=== PATIENT | female | born 1960 | race Caucasian/White ===

== ENCOUNTER 2020-10-25 16:24 | Outpatient (CLI) | payer BC, SELFPAY ==
--- NOTE | ~2020-10-25 | MM_ITS ---
EXAMINATION: MM screening reid BI w justin HISTORY: Screening TECHNIQUE: Craniocaudal and mediolateral oblique 3-D tomosynthesis images were obtained and synthetic 2-D images were generated. CAD analysis was submitted and interpreted. COMPARISON: Comparison to multiple prior studies sequentially, with oldest reviewed study dated 01/2014. BREAST PARENCHYMAL COMPOSITION: There are scattered areas of fibroglandular density. FINDINGS: There is no evidence of suspicious mass, calcification, or architectural distortion to sugg est malignancy in either breast. There has been no suspicious interval change. IMPRESSION: 1. No mammographic evidence of malignancy. 2. Recommend routine screening mammography in one year. BI-RADS Category 1: Negative Reviewed, dictated and finalized at location A. ITE TREATER
== END 2020-10-25 16:25 | disposition home or self-care (01) ==
PROVIDERS: PCP Family Medicine Adolescent Medicine; Visit Provider Obstetrics & Gynecology
DX: Z12.31 Encounter for screening mammogram for malignant neoplasm of breast (principal)
CPT/HCPCS: 77063; 77067

== ENCOUNTER 2022-08-28 07:38 | Observation (INO) | payer BC, SELFPAY ==
--- NOTE | ~2022-08-28 | XR_ITS ---
EXAMINATION: XR wrist LT min 3V DATE: 08/28/2022 08:12 INDICATION: Left wrist injury and pain. TECHNIQUE: 4 views of left wrist were obtained. COMPARISON: None. FINDINGS: There is a comminuted fracture of distal radius with involvement of the distal articular beasley rface. The main distal fracture fragment demonstrates impaction and dorsal angulation. There is 15 de grees dorsal tilt of the distal articular surface. There is an avulsion fracture of the ulnar styloid . There is mild osteoarthritis of first carpometacarpal joint and triscaphe joint. IMPRESSION: 1. Comminuted fracture of distal radius. 2. Avulsion fracture of the ulnar styloid. Reviewed, dictated and finalized at location A. ER PRINTER
--- NOTE | ~2022-08-28 | XR_ITS ---
EXAMINATION: XR ankle LT min 3V DATE: 08/28/2022 08:11 INDICATION: Left ankle pain and swelling. Fall. TECHNIQUE: 4 views of left ankle were obtained. COMPARISON: None. FINDINGS: There is a transverse fracture of lateral malleolus with medial aspect of the fracture line 13 mm distal to the level of the tibial plafond. The distal fracture fragment demonstrates near-hannah omic alignment. There is mild midfoot osteoarthritis. There is an enthesophyte at plantar aspect of c alcaneal tuberosity. Ankle soft tissue swelling is noted. IMPRESSION: 1. Transverse fracture of lateral malleolus. Reviewed, dictated and finalized at location A. ING SPECIALIST
--- NOTE | ~2022-08-28 | XR_ITS ---
EXAMINATION: XR chest 1V portable 08/28/2022 17:28 INDICATION: Hypertension. Type 2 diabetes. PROCEDURE: AP portable chest COMPARISON: No prior studies for comparison. FINDINGS: The lungs are clear. The cardiomediastinal silhouette is within normal limits. There are no pleural effusions. There is no pneumothorax suspected. IMPRESSION: 1: NO ACUTE CARDIOPULMONARY DISEASE. Reviewed, dictated and finalized at location A. L SPINNER
[2022-08-28 07:39] VITALS: BP 188/86; PULSE 85; RESP 16; TEMP 36.6; O2SAT 96
--- NOTE | 2022-08-28 08:20 | ED.FALL ---
HPI - Fall General Chief Complaint: Fall Stated Complaint: miss step on steps; ankle and wrist pain Time Seen by Provider: 08/28/22 07:56 Source: patient, family and EMS Mode of arrival: EMS Limitations: no limitations History of Present Illness HPI Narrative: Patient going down 1 step, twisted left ankle, heard a pop, landed forward on the left wrist. She denies any other injuries, loss of consciousness or head injury. History of diabetes, hypertension, hyperlipidemia. Currently on baby aspirin once a day. Patient does not smoke or drink or uses drugs. Related Data Home Medications Medication Instructions Recorded Confirmed aspirin 81 mg tablet,delayed 81 mg PO DAILY 01/07/22 05/20/22 release multivit with 1 tablet PO DAILY 01/07/22 05/20/22 wrazoyjn-bnwq-QF-lutein 8 mg iron-400 mcg-300 mcg tablet (Multivitamin Women 50 Plus) losartan 100 mg tablet mg 08/28/22 metformin 500 mg tablet,extended mg PO 08/28/22 release 24 hr metoprolol succinate 50 mg mg PO 08/28/22 tablet,extended release 24 hr sertraline 100 mg tablet mg 08/28/22 sitagliptin phosphate 100 mg mg 08/28/22 tablet (Januvia) Allergies Allergy/AdvReac Type Severity Reaction Status Date / Time No Known Allergies Allergy Verified 08/28/22 07:53 Review of Systems Review of Systems: All systems reviewed & are unremarkable except as noted in HPI and below PMFSH Past Medical History Medical History Abnormal Pap smear of cervix 08/09/08 BENIGN APPEARING GLANDULAR CELL STATUS POST HYST Anxiety Diabetes type 2, controlled Hypertension Osteopenia (~2014) Pure hypercholesterolemia, unspecified Screening mammogram, encounter for Surgical History Surgical History History of colposcopy with cervical biopsy (11/03/03) History of hysterectomy, supracervical (~2000) History of tubal ligation (~1981) Family History Family History Mother Carcinoma of colon Cerebrovascular accident Colon polyp Hypertension Heart disease Grandparent Acute myocardial infarction Breast cancer Diabetes mellitus Heart disease Sibling Carcinoma of colon Colon polyp Grandparent Diabetes mellitus Father Malignant neoplasm of lung Social History Social History Smoking status: Never smoker Second hand tobacco smoke exposure: Yes Alcohol intake: never Substance use: never Substance use type: does not use Additional living arrangements comments: 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 Gender identity (if verbalized by the patient): Female Sexual Orientation (if Verbalized by the Patient): Straight or Heterosexual Spiritual care concerns: No Agree to blood products: Yes Exam Narrative: General appearance: Well-developed, well-nourished Skin: Normal color Head: Normocephalic, nontraumatic Eyes: Clear conjunctiva ENT: Oropharynx normal, ears normal, nose normal Neck: Supple, nontender Chest and respiratory: Airway patent, no respiratory distress, no accessory muscle use Heart: Regular rate/rhythm Abdomen: Soft, nontender, no organomegaly, quiet bowel sounds Vascular: Normal peripheral pulses, normal capillary refill. Musculoskeletal: Diffuse tenderness, slight swelling of the left wrist with severe limited range of motion, left ankle showed swelling and diffuse tenderness at the lateral malleolus. Neurologic: Alert and oriented ?3, [facility] SPECIALIST is normal as tested, no gross motor deficit Course Reevaluation(s) Re
[2022-08-28] MEDS: MORPHINE SULFATE (*CRX) 4 MG/ML INJ IV PUSH ×2 (09:06→14:54)
[2022-08-28] MEDS: ONDANSETRON INJ 4 MG/2 ML VIAL IV PUSH ×2 (09:06→14:54)
[2022-08-28 14:53] VITALS: BP 155/73; PULSE 77; RESP 20; O2SAT 96
--- NOTE | 2022-08-28 15:04 | PC.NURSE ---
Patient attempted to ambulate with crutch and is able to scoot her foot. but unable to bare weight on that foot.
--- NOTE | 2022-08-28 17:20 | PM.IMHP ---
H&P: HPI History of Present Illness Date/Time: 08/28/22 17:20 Chief Complaint: Left ankle and wrist pain after fall. Narrative: This is a very pleasant 62-year-old female with hypertension, hyperlipidemia, and diabetes who presented to the ED for evaluation of left ankle and wrist pain after a fall. This morning while walking down a couple of steps her left ankle rolled inwards and caused her to fall onto the ground at which time she tried to stop herself with the left wrist. She heard an immediate ?pop? in the the left ankle and she had pain in both her wrist and ankle after the fall. She had difficult times getting herself up and EMS was summoned. In the emergency department she was found to have a transverse fracture of the lateral malleolus and a comminuted fracture of the distal radius with an avulsion fracture of the ulnar styloid. She was splinted and plans were for discharge home however she is having difficulties ambulating and with concerns for safety she is being admitted. She received pain medication not long prior to my examination and she is comfortable at this time. She denies head trauma and loss of consciousness in the fall. Review of Systems Review of Systems: Twelve systems were reviewed. No recent cold or flu symptoms. She does have a chronic, mild cough which she has been told is related to her blood pressure medications. She reports that her diabetes is well controlled though admits she has not been checking her glucose much since the holiday. No blurry vision, polydipsia, or polyuria. No history of venous thromboembolism. Except as documented, all other systems were reviewed and are negative. [facility] Past Medical History Medical History (Updated 08/28/22 @ 21:58 by Aretha Tolliver PA-C) Anxiety Diabetes type 2, controlled Hypertension Osteopenia (~2014) Pure hypercholesterolemia, unspecified Surgical History Surgical History (Updated 08/28/22 @ 21:52 by Aretha Tolliver PA-C) History of bilateral salpingo-oophorectomy History of colposcopy with cervical biopsy (11/03/03) History of hysterectomy, supracervical (~2000) History of tubal ligation (~1981) Family History Family History Mother Carcinoma of colon Cerebrovascular accident Colon polyp Hypertension Heart disease Grandparent Acute myocardial infarction Breast cancer Diabetes mellitus Heart disease Sibling Carcinoma of colon Colon polyp Grandparent Diabetes mellitus Father Malignant neoplasm of lung Social History Social History (Updated 08/28/22 @ 21:52 by Aretha Tolliver PA-C) Social History: Surrogate medical decision maker: Conner Subramanian, spouse. Code status: Full code. Smoking status: Never smoker Second hand tobacco smoke exposure: No Alcohol intake: never Substance use: never Substance use type: does not use Lack of Transportation: No Lack of Food: Never True Current Housing: I Have Housing Concerned About Future Housing: No Difficulty Paying Gas/Electric Bills: No Difficulty Paying for Meds: No Currently Unemployed: No Education: High School Diploma/GED Difficulty w/ Childcare or Family Care: No Additional living arrangements comments: Lives with in [place]. 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 Spiritual care concerns: No Agree to blood products: Yes Meds Home Medications and Allergies Home Medications Medication Instructions Recorded Confirmed Type aspirin 81 mg tablet,delayed 81 mg PO DAILY 01/07/22 08/28/22 History release multivit with 1 tablet PO DAILY 01/07/22 08/28/22 History abzpicgj-zrjn-EI-lutein 8 mg iron-400 mcg-300 mcg tablet (Multivitamin Women 50 Plus) losartan 100 mg tablet 100 mg PO DAILY #90 tabs 01/25/22 08/28/22 Rx sertraline 100 mg tablet 100 mg PO DAILY #90 tabs 01/25/22 08/28/22 Rx sitagliptin phosphate 100 mg 100 mg PO DAILY #90
--- NOTE | 2022-08-28 18:17 | ADMGEN ---
This patient, Betina Denney, was admitted to 2 Medical Room 242-01. Patient/family oriented to hospital policies and general routines including ID bracelet, bed and alarms, visiting hours, pain management, procedures, bathroom and other care routines, personal items, smoking policy, room service/diet, and visiting hours. Information on how to activate the Rapid Response Team has been discussed. Patient/Family are encouraged to report perceived risks to care and to ask questions if they do not understand what they are told or what they should do.
[2022-08-28 18:34] VITALS: BMI 41.1
[2022-08-28 19:03] LABS: Basophils Percent Auto 0.3 % (0.2-1.2); Eosinophils Absolute Auto 0.1 K/mm3 (0-0.3); Eosinophils Percent Auto 1.4 % (0-4.4); Hematocrit 42.3 % (37.0-47.0); Hemoglobin 13.3 g/dL (12.0-15.0); Immature Granulocyte Absolute 0.04 K/mm3 (0.00-0.031); Immature Granulocyte Percent A 0.4 % (0-0.5); Lymphocytes Absolute Auto 2.99 K/mm3 (0.9-3.2); Lymphocytes Percent Auto 31.3 % (18.3-44.2); Mean Corpuscular HGB Conc 31.4 g/dl (32-36); Mean Corpuscular Hemoglobin 26.9 pg (26-34); Mean Corpuscular Volume 85.6 fl (80-100); Mean Platelet Volume 10.3 fl (7.4-10.4); Monocytes Absolute Auto 0.6 K/mm3 (0.1-0.6); Neutrophils Absolute Auto 5.8 K/mm3 (1.3-6.7); Neutrophils Percent Auto 60.6 % (45.5-73.1); Platelet Count Result 132 k/mm3 (150-375); Red Blood Count 4.94 M/mm3 (4.2-5.4); Red Cell Distribution Width 15.6 % (11.5-14.5); White Blood Count 9.5 K/mm3 (4.5-10.0)
[2022-08-28 19:14] LABS: Alanine Aminotransferase 47 U/L (6-35); Albumin Level 4.5 g/dL (3.5-5.1); Alkaline Phosphatase 71 U/L (38-126); Anion Gap 7 mmol/L (8-16); Aspartate Amino Transferase 56 U/L (14-36); Blood Urea Nitrogen 15 mg/dL (7-17); Calcium 8.9 mg/dL (8.4-10.2); Carbon Dioxide 25 mmol/L (22-30); Chloride 106 mmol/L (98-107); Estimated CRCL calculation 101 ml/min; Estimated Glomerular Filt Rate > 60; Glucose 142 mg/dL (65-110); Sodium 138 mmol/L (137-145)
[2022-08-28 19:20] LABS: Hemoglobin A1C 7.6 % (<5.7)
[2022-08-28 19:21] LABS: INR 1.2; Prothrombin Time 14.7 Seconds (11.1-14.7)
[2022-08-28 19:22] LABS: Partial Thromboplastin Time 29.7 SECONDS (22.3-36.8)
[2022-08-28 19:52] LABS: Glucose Point of Care 159 mg/dl (65-105)
[2022-08-28] MEDS: HYDROcodone/acetaminophen (*CRX) 5-325 MG TABLET 1 TAB PO (20:52)
[2022-08-28 21:23] VITALS: BP 125/55; PULSE 86; RESP 18; TEMP 36.8; O2SAT 92
[2022-08-29] MEDS: ACETAMINOPHEN 325 MG TABLET 650 MG PO ×2 (04:30→20:19)
[2022-08-29 04:40] LABS: Glucose Point of Care 167 mg/dl (65-105)
[2022-08-29 05:30] VITALS: BP 141/66; PULSE 81; RESP 18; TEMP 36.4; O2SAT 94
--- NOTE | 2022-08-29 07:11 | PCOTNOTE ---
Needs ortho consult and WB status prior to OT evaluation.
--- NOTE | 2022-08-29 07:37 | PCPTNOTE ---
Needs ortho consult and WB status prior to PT evaluation.
[2022-08-29 08:00] VITALS: BP 146/63; PULSE 82; RESP 18; TEMP 36.6; O2SAT 96
[2022-08-29 09:13] LABS: Glucose Point of Care 198 mg/dl (65-105)
[2022-08-29] MEDS: ONDANSETRON INJ 4 MG/2 ML VIAL IV PUSH ×2 (09:13→15:10)
[2022-08-29] MEDS: metFORMIN HCL XR 500 MG TAB.SR.24H 1000 MG PO ×2 (10:17→17:15)
[2022-08-29] MEDS: THERAPEUTIC MULTIVITAMINS/MINERALS TAB (*BKC) 1 TABLET PO (10:17)
[2022-08-29] MEDS: SERTRALINE HCL 50 MG TABLET 100 MG PO (10:18)
[2022-08-29] MEDS: LOSARTAN POTASSIUM 100 MG TABLET PO (10:19)
[2022-08-29] MEDS: METOPROLOL SUCCINATE EXT REL 50 MG TABCR PO (10:19)
[2022-08-29 11:45] LABS: Glucose Point of Care 214 mg/dl (65-105)
[2022-08-29] MEDS: INSULIN ASPART (*BKC) 100 UNITS/ML SUB-Q (12:53)
--- NOTE | 2022-08-29 13:31 | PM.CNOR ---
Assessment and Plan Assessment and plan (1) Closed fracture of left distal radius: Qualifiers: Encounter type: initial encounter Fracture morphology: Colles' Qualified Code(s): S52.532A - Colles' fracture of left radius, initial encounter for closed fracture Code(s): S52.502A - Unspecified fracture of the lower end of left radius, initial encounter for closed fracture Status: Acute Assessment and Plan: New patient evaluation status post injury Left wrist and ankle. The history, physical exam and radiographs reviewed with the patient. Type of fracture discussed in detail. Left comminuted distal radius fracture with intra-articular extension. Treatment options including operative and non operative treatment reviewed. Risks, benefits and alternatives of each treatment discussed in detail. The patient has declined surgical treatment. Risks of treatment decision discussed in detail. Potential problems with displacement of the fracture, loss of alignment, nonunion, malunion and dysfunction discussed in detail. The patient's questions were answered. They verbalized understanding and agreement. Conservative treatment with immobilization, ice, compression and elevation. Currently in splint. Plan repeat radiographs in 1 week. (2) Closed fracture of lateral malleolus of left ankle: Qualifiers: Encounter type: initial encounter Fracture alignment: displaced Qualified Code(s): S82.62XA - Displaced fracture of lateral malleolus of left fibula, initial encounter for closed fracture Code(s): S82.62XA - Displaced fracture of lateral malleolus of left fibula, initial encounter for closed fracture Status: Acute Assessment and Plan: Type of fracture discussed in detail. Minimally displaced distal fibular fracture. Treatment options including operative and non operative treatment reviewed. Risks, benefits and alternatives of each treatment discussed in detail. The patient has declined surgical treatment. Risks of treatment decision discussed in detail. Potential problems with displacement of the fracture, loss of alignment, nonunion, malunion and dysfunction discussed in detail. The patient's questions were answered. They verbalized understanding and agreement. Conservative treatment with immobilization, ice, compression and elevation. Fracture boot for immobilization and to allow protected weight-bearing. PT/OT. Disposition when stable. History of Present Illness HPI Consult date: 08/29/22 Requesting physician: Caryn Nobel MD Chief complaint: FRACTURE LEFT WRIST & LEFT ANKLE Narrative: 62-year-old woman at home yesterday morning getting ready to leave for work when she lost her balance and fell injuring her left ankle and left wrist. Treated through the emergency room and admitted for further care. Patient is right-hand dominant. Reports previous left wrist fracture 2 years ago treated conservatively. History of sprain injuries to the left ankle but no recent treatment. Review of Systems Constitutional: Constitutional: Denies fever(s) Eyes: Eyes: Denies blurry vision ENT: Reports Normal hearing present Cardiovascular: Cardiovascular: Denies chest pain and Denies dyspnea Respiratory: Respiratory: Denies dyspnea and Denies wheezing Gastrointestinal: Gastrointestinal: Denies abdominal pain Genitourinary: Genitourinary: Denies urinary urgency Musculoskeletal: Musculoskeletal: Reports as per HPI and Denies numbness Integumentary/Breasts: Skin/Breast: Denies changing lesions and Denies sores Neurologic: Reports Normal hearing present, Denies behavioral changes, Denies confusion, Denies numbness and Denies convulsions Psychiatric: Psychiatric: Denies behavioral changes, Denies confusion and Denies hallucinations Endocrine: Endocrine: Denies heat intolerance Hematologic/Lymphatic: Hematologic/Lymphatic: Denies easy bleeding Allergic/Immunologic: Allergic/Immunol
--- NOTE | 2022-08-29 14:57 | PCOTNOTE ---
Needs ortho consult and WB status prior to OT evaluation.
[2022-08-29] MEDS: CALCIUM CARBONATE (TUMS) 500 MG (200 MG ELEMENTAL) PO (15:10)
--- NOTE | 2022-08-29 15:28 | PM.IMPN ---
Progress Note: A&P Assessment and Plan (1) Closed fracture of lateral malleolus of left ankle: Qualifiers: Encounter type: initial encounter Fracture alignment: displaced Qualified Code(s): S82.62XA - Displaced fracture of lateral malleolus of left fibula, initial encounter for closed fracture Code(s): S82.62XA - Displaced fracture of lateral malleolus of left fibula, initial encounter for closed fracture Status: Acute Assessment and Plan: Orthopedic surgery consulted. Appreciate their input. They recommend conservative management at this point of time. PT/OT (2) Closed fracture of left distal radius: Qualifiers: Encounter type: initial encounter Fracture morphology: Colles' Qualified Code(s): S52.532A - Colles' fracture of left radius, initial encounter for closed fracture Code(s): S52.502A - Unspecified fracture of the lower end of left radius, initial encounter for closed fracture Status: Acute Assessment and Plan: Conservative management per Orthopedic surgery (3) Hypertension: Code(s): I10 - Essential (primary) hypertension Status: Acute Assessment and Plan: Continue home meds (4) Diabetes type 2, controlled: Code(s): E11.9 - Type 2 diabetes mellitus without complications Status: Acute Assessment and Plan: Continue home meds Subjective Date/time seen: 08/29/22 15:28 No pain Review of Systems Constitutional: Constitutional: Denies fever(s) Eyes: Eyes: Denies blurry vision ENT: Reports Normal hearing present Cardiovascular: Cardiovascular: Denies chest pain and Denies dyspnea Respiratory: Respiratory: Denies dyspnea and Denies wheezing Gastrointestinal: Gastrointestinal: Denies abdominal pain Genitourinary: Genitourinary: Denies urinary urgency Musculoskeletal: Musculoskeletal: Reports as per HPI and Denies numbness Integumentary/Breasts: Skin/Breast: Denies changing lesions and Denies sores Neurologic: Reports Normal hearing present, Denies behavioral changes, Denies confusion, Denies numbness and Denies convulsions Psychiatric: Psychiatric: Denies behavioral changes, Denies confusion and Denies hallucinations Endocrine: Endocrine: Denies heat intolerance Hematologic/Lymphatic: Hematologic/Lymphatic: Denies easy bleeding Allergic/Immunologic: Allergic/Immunologic: Denies wheezing Exam Const: General: No confusion HENMT: Head: normal to inspection, normocephalic and atraumatic Eyes: Conjunctivae: conjunctivae normal Sclera: sclerae normal Neck: Neck: supple and nontender Chest: Chest palpation & inspection: normal inspection of the chest Resp: Effort & Inspection: normal respiratory effort and no audible wheezes Cardio: Rate: regular rate Rhythm: regular rhythm : General: Yes deferred Skin: General skin exam: no rashes or lesions noted Neuro: General: No confusion Cranial nerves: Yes Normal hearing present Extrem: Right upper extremity: shoulder/upper arm axillary nerve sensory function normal, normal ROM and other (RC 5/5, Bicep 5/5, Deltoid 5/5, ER 5/5); no tenderness and no swelling, elbow/forearm normal ROM; no tenderness and no swelling, wrist normal ROM and radial pulse present; no tenderness and Extremity exam: right hand neuromotor exam normal wrist extension normal, thumb opposition normal, thumb IP flexion normal and fingers 2-5 ABduction normal, neurosensory exam normal radial nerve sensory function normal, ulnar nerve sensory function normal, median nerve sensory function normal and digital nerve sensory function normal and vascular exam radial pulse present and normal capillary refill; no tenderness, no swelling and no crepitus Left upper extremity: shoulder/upper arm inspection abnormal, axillary nerve sensory function normal, normal ROM and other (RC 5/5, Bicep 5/5, Deltoid 5/5, ER 5/5); no tenderness and no swelling, elbow/forearm normal ROM; no tenderness and no s
--- NOTE | 2022-08-29 15:32 | PCWOUND ---
CWON NOTE Received call from Leah in physical therapy inquiring about a fracture boot. Stated we could bill for fracture boot we keep in office. Fracture boot given to Kenzie morel RN for placement by therapy.
[2022-08-29 16:00] VITALS: BP 155/70; PULSE 72; RESP 18; TEMP 36.7; O2SAT 93
[2022-08-29 17:21] LABS: Glucose Point of Care 179 mg/dl (65-105)
[2022-08-29] MEDS: ROSUVASTATIN 10 MG TABLET 20 MG PO (20:14)
[2022-08-29 21:27] VITALS: BP 143/67; PULSE 74; RESP 17; TEMP 36.7; O2SAT 94
[2022-08-29 21:54] LABS: Glucose Point of Care 155 mg/dl (65-105)
[2022-08-30 05:13] VITALS: BP 130/59; PULSE 80; RESP 18; TEMP 36.7; O2SAT 94
[2022-08-30 08:00] VITALS: BP 152/74; PULSE 74; RESP 18; TEMP 36.6; O2SAT 94
[2022-08-30 08:20] LABS: Glucose Point of Care 177 mg/dl (65-105)
[2022-08-30 09:27] VITALS: PULSE 75
[2022-08-30] MEDS: METOPROLOL SUCCINATE EXT REL 50 MG TABCR PO (09:27)
[2022-08-30] MEDS: metFORMIN HCL XR 500 MG TAB.SR.24H 1000 MG PO (09:27)
[2022-08-30] MEDS: SERTRALINE HCL 50 MG TABLET 100 MG PO (09:27)
[2022-08-30] MEDS: LOSARTAN POTASSIUM 100 MG TABLET PO (09:27)
[2022-08-30] MEDS: THERAPEUTIC MULTIVITAMINS/MINERALS TAB (*BKC) 1 TABLET PO (09:30)
--- NOTE | 2022-08-30 10:21 | PM.PNORT ---
Progress Note: A&P Assessment and Plan (1) Closed fracture of left distal radius: Qualifiers: Encounter type: subsequent encounter Fracture morphology: Colles' Fracture healing: with routine healing Qualified Code(s): S52.532D - Colles' fracture of left radius, subsequent encounter for closed fracture with routine healing Code(s): S52.502A - Unspecified fracture of the lower end of left radius, initial encounter for closed fracture Status: Acute Assessment and Plan: Splint left wrist. Fracture precautions reviewed. Follow up in orthopedic office next week for new radiographs. (2) Closed fracture of lateral malleolus of left ankle: Qualifiers: Encounter type: initial encounter Fracture alignment: displaced Qualified Code(s): S82.62XA - Displaced fracture of lateral malleolus of left fibula, initial encounter for closed fracture Code(s): S82.62XA - Displaced fracture of lateral malleolus of left fibula, initial encounter for closed fracture Status: Acute Assessment and Plan: Fracture boot applied to left ankle after splint removed. PT/OT with protected weight left leg as tolerated. Fracture boot when up. May remove when resting. Discharge disposition wound patient cleared by therapy. Follow-up in Orthopedic office next week. Subjective Subjective Date/Time Seen: 08/30/22 10:21 Principal diagnosis: left wrist fracture, left ankle fracture Interval history: 2 days status post injury. Fracture boot able to be fit to the left ankle. PT/ OT working with patient. Requires forearm walker due to wrist fracture. Exam Const: General: No confusion Orientation/consciousness: No confusion HENMT: Head: normal to inspection, normocephalic and atraumatic Eyes: Conjunctivae: conjunctivae normal Sclera: sclerae normal Neck: Neck: supple and nontender Chest: Chest palpation & inspection: normal inspection of the chest Resp: Effort & Inspection: normal respiratory effort and no audible wheezes Cardio: Rate: regular rate Rhythm: regular rhythm : General: Yes deferred Skin: General skin exam: no rashes or lesions noted Neuro: General: No confusion Cranial nerves: Yes Normal hearing present Extrem: Right upper extremity: shoulder/upper arm axillary nerve sensory function normal, normal ROM and other (RC 5/5, Bicep 5/5, Deltoid 5/5, ER 5/5); no tenderness and no swelling, elbow/forearm normal ROM; no tenderness and no swelling, wrist normal ROM and radial pulse present; no tenderness and Extremity exam: right hand neuromotor exam normal wrist extension normal, thumb opposition normal, thumb IP flexion normal and fingers 2-5 ABduction normal, neurosensory exam normal radial nerve sensory function normal, ulnar nerve sensory function normal, median nerve sensory function normal and digital nerve sensory function normal and vascular exam radial pulse present and normal capillary refill; no tenderness, no swelling and no crepitus Left upper extremity: shoulder/upper arm inspection abnormal, axillary nerve sensory function normal, normal ROM and other (RC 5/5, Bicep 5/5, Deltoid 5/5, ER 5/5); no tenderness and no swelling, elbow/forearm normal ROM; no tenderness and no swelling, wrist abnormal to inspection ( Splint in place), tenderness of the dorsal wrist, abnormal ROM ( reduced secondary to injury) with range as follows ( minimal secondary to fracture) and radial pulse present and hand neuromotor exam normal Details: wrist extension normal and thumb IP flexion normal, neurosensory exam normal Details: radial nerve sensory function normal, ulnar nerve sensory function normal and median nerve sensory function normal, tendon exam normal Location: of all digits and vascular exam normal capillary refill; no tenderness Right lower extremity: normal to inspection and hip/thigh Details: normal to inspection Left lower extremity: hip/thigh Details: normal to inspection, knee Details: n
[2022-08-30] MEDS: ACETAMINOPHEN 325 MG TABLET 650 MG PO (11:23)
[2022-08-30 11:35] LABS: Glucose Point of Care 186 mg/dl (65-105)
--- NOTE | 2022-08-30 11:42 | PM.DS ---
DS: Admitting Diagnosis Discharge Date 08/30/2022 Admitting Diagnosis Ankle fracture, distal radial fracture DS: Discharge Diagnosis Discharge Diagnosis (1) Closed fracture of left distal radius: Qualifiers: Encounter type: subsequent encounter Fracture morphology: Colles' Fracture healing: with routine healing Qualified Code(s): S52.532D - Colles' fracture of left radius, subsequent encounter for closed fracture with routine healing Code(s): S52.502A - Unspecified fracture of the lower end of left radius, initial encounter for closed fracture Status: Acute (2) Closed fracture of lateral malleolus of left ankle: Qualifiers: Encounter type: initial encounter Fracture alignment: displaced Qualified Code(s): S82.62XA - Displaced fracture of lateral malleolus of left fibula, initial encounter for closed fracture Code(s): S82.62XA - Displaced fracture of lateral malleolus of left fibula, initial encounter for closed fracture Status: Acute (3) Fall: Code(s): W19.XXXA - Unspecified fall, initial encounter Status: Acute DS: Summary Hospital Course Hospital Course: (1) Closed fracture of left distal radius: ?Qualifiers: ?Encounter type:?subsequent encounter??Fracture morphology:?Colles'??Fracture healing:?with routine healing? Qualified Code(s):?S52.532D - Colles' fracture of left radius, subsequent encounter for closed fracture with routine healing ?Code(s): S52.502A - Unspecified fracture of the lower end of left radius, initial encounter for closed fracture ?Status:?Acute ?Assessment and Plan: ? Splint left wrist.? Fracture precautions reviewed.? Follow up in orthopedic office next week for new radiographs. (2) Closed fracture of lateral malleolus of left ankle: ?Qualifiers: ?Encounter type:?initial encounter??Fracture alignment:?displaced? Qualified Code(s):?S82.62XA - Displaced fracture of lateral malleolus of left fibula, initial encounter for closed fracture ?Code(s): S82.62XA - Displaced fracture of lateral malleolus of left fibula, initial encounter for closed fracture ?Status:?Acute ?Assessment and Plan: ? Fracture boot applied to left ankle after splint removed.? PT/OT with protected weight left leg as tolerated.? Fracture boot when up.? May remove when resting.? Discharge home with home health.? Follow-up in Orthopedic office next week. Time Spent with Patient Time attestation: Total time spent providing and/or coordinating discharge services: Exam Const: General: No confusion Orientation/consciousness: No confusion HENMT: Head: normal to inspection, normocephalic and atraumatic Eyes: Conjunctivae: conjunctivae normal Sclera: sclerae normal Neck: Neck: supple and nontender Chest: Chest palpation & inspection: normal inspection of the chest Resp: Effort & Inspection: normal respiratory effort and no audible wheezes Cardio: Rate: regular rate Rhythm: regular rhythm : General: Yes deferred Skin: General skin exam: no rashes or lesions noted Neuro: General: No confusion Cranial nerves: Yes Normal hearing present Extrem: Right upper extremity: shoulder/upper arm axillary nerve sensory function normal, normal ROM and other (RC 5/5, Bicep 5/5, Deltoid 5/5, ER 5/5); no tenderness and no swelling, elbow/forearm normal ROM; no tenderness and no swelling, wrist normal ROM and radial pulse present; no tenderness and Extremity exam: right hand neuromotor exam normal wrist extension normal, thumb opposition normal, thumb IP flexion normal and fingers 2-5 ABduction normal, neurosensory exam normal radial nerve sensory function normal, ulnar nerve sensory function normal, median nerve sensory function normal and digital nerve sensory function normal and vascular exam radial pulse present and normal capillary refill; no tenderness, no swelling and no crepitus Left upper extremity: shoulder/upper arm inspection abnorm
== END 2022-08-30 14:50 | disposition home health service (06) ==
LOC: ANHED 16:54 → ANH2MED 08-29 10:31
PROVIDERS: Internal Medicine; Physician Assistant; Admitting Provider Student in an Organized Health Care Education/Training Program; Emergency Provider Emergency Medicine; PCP Family Medicine Adolescent Medicine; Visit Provider Hospitalist
DX: S82.62XA Displaced fracture of lateral malleolus of left fibula, initial encounter for closed fracture (principal); S52.532A Colles' fracture of left radius, initial encounter for closed fracture; S52.612A Displaced fracture of left ulna styloid process, initial encounter for closed fracture; W10.9XXA Fall (on) (from) unspecified stairs and steps, initial encounter; I10 Essential (primary) hypertension; E11.9 Type 2 diabetes mellitus without complications; E78.5 Hyperlipidemia, unspecified; F41.9 Anxiety disorder, unspecified; E78.00 Pure hypercholesterolemia, unspecified; M85.80 Other specified disorders of bone density and structure, unspecified site; Z79.82 Long term (current) use of aspirin; Z79.84 Long term (current) use of oral hypoglycemic drugs; Z79.899 Other long term (current) drug therapy; Z83.3 Family history of diabetes mellitus; Z82.49 Family history of ischemic heart disease and other diseases of the circulatory system
CPT/HCPCS: 29125; 29515; 36415; 71045; 73110; 73610; 80053; 82948; 83036; 85025; 85610; 85730; 96374; 96375; 96376; 97116; 97161; 97166; 97530; 97535; 99285; A9270; G0378; J1815; J2270; J2405; L2116

== ENCOUNTER 2022-09-14 07:01 | Outpatient (CLI) | payer BC, SELFPAY ==
--- NOTE | ~2022-09-14 | MM_ITS ---
EXAMINATION: MM screening reid BI w justin HISTORY: Screening TECHNIQUE: Craniocaudal and mediolateral oblique 3-D tomosynthesis images were obtained and synthetic 2-D images were generated. CAD analysis was submitted and interpreted. COMPARISON: Comparison to multiple prior studies sequentially, with oldest reviewed study dated [place] r[place] to multiple prior studies sequentially, with oldest reviewed study dated 10/16/2015. . BREAST PARENCHYMAL COMPOSITION: There are scattered areas of fibroglandular density. FINDINGS: There is no evidence of suspicious mass, calcification, or architectural distortion to sugg est malignancy in either breast. There has been no suspicious interval change. IMPRESSION: 1. No mammographic evidence of malignancy. 2. Recommend routine screening mammography in one year. BI-RADS Category 1: Negative Reviewed, dictated and finalized at location A. [facility]
== END 2022-09-14 07:02 | disposition home or self-care (01) ==
PROVIDERS: PCP Family Medicine Adolescent Medicine; Visit Provider Obstetrics & Gynecology
DX: Z12.31 Encounter for screening mammogram for malignant neoplasm of breast (principal)
CPT/HCPCS: 77063; 77067

== ENCOUNTER 2023-03-14 18:55 | Emergency (ER) | payer BC, SELFPAY ==
[2023-03-14 19:06] VITALS: BP 172/80; PULSE 88; RESP 16; TEMP 36.3; O2SAT 98
--- NOTE | 2023-03-14 19:50 | ED.GENADULT ---
HPI - General Adult General Chief complaint: Extremity Injury, Lower Stated complaint: Left Leg Pain Time Seen by Provider: 03/14/23 19:33 Source: patient and RN notes reviewed Mode of arrival: ambulatory Limitations: no limitations History of Present Illness HPI narrative: Patient presents today complaining of a 2 week history of pain starting in her right buttock radiating down the right posterior leg to the calf. She was attempting to squat over a public toilet today when her right knee gave out, causing the radiating pain down her leg to worsen. Denies numbness or tingling in the leg or genitals. Denies loss of bowel or bladder control. She currently rates her pain 10. She has been applying a topical analgesic to the knee and wearing a knee brace without much relief. She has tried no oral medication for symptoms prior to arrival. Denies back pain. Related Data Home Medications Medication Instructions Recorded Confirmed aspirin 81 mg tablet,delayed 81 mg PO DAILY 01/07/22 03/14/23 release multivit with 1 tablet PO DAILY 01/07/22 03/14/23 mjwkgdln-dwxp-EP-lutein 8 mg iron-400 mcg-300 mcg tablet (Multivitamin Women 50 Plus) Allergies Allergy/AdvReac Type Severity Reaction Status Date / Time No Known Allergies Allergy Verified 03/14/23 19:05 Review of Systems Review of Systems: CONSTITUTIONAL: Denies body aches, fever, chills, or sweats. EYES: Denies visual changes, redness, or discharge. ENT: Denies rhinorrhea, congestion, sore throat, or otalgia. CARDIOVASCULAR: Denies chest pain, palpitations, or edema. RESPIRATORY: Denies cough or dyspnea. GASTROINTESTINAL: Denies abdominal pain, nausea, vomiting, or diarrhea. GENITOURINARY: Denies dysuria or hematuria. SKIN: Denies rash, itching, or wounds. MUSCULOSKELETAL: Denies back pain, joint pain. + right leg pain NEUROLOGIC: Denies headache, numbness, tingling, or weakness. PSYCH: Denies depression or anxiety. [facility] Past Medical History Medical History Anxiety Diabetes type 2, controlled (2016) Fracture of ankle, left, closed Fracture of left wrist History of renal stone (07/2019) Hypertension Osteopenia (~2014) Pure hypercholesterolemia, unspecified Surgical History Surgical History History of bilateral salpingo-oophorectomy History of colposcopy with cervical biopsy (11/03/03) History of hysterectomy, supracervical (~2000) History of tubal ligation (~1981) Family History Family History Mother Carcinoma of colon Cerebrovascular accident Colon polyp Hypertension Heart disease Grandparent Acute myocardial infarction Breast cancer Diabetes mellitus Heart disease Sibling Carcinoma of colon Colon polyp Grandparent Diabetes mellitus Father Malignant neoplasm of lung Social History Social History Social History: Surrogate medical decision maker: Conner Moris, spouse. Code status: Full code. Smoking status: Never smoker Second hand tobacco smoke exposure: No Alcohol intake: never Substance use: never Substance use type: does not use Lack of Transportation: No Lack of Food: Never True Current Housing: I Have Housing Concerned About Future Housing: No Difficulty Paying Gas/Electric Bills: No Difficulty Paying for Meds: No Currently Unemployed: No Education: High School Diploma/GED Difficulty w/ Childcare or Family Care: No Living arrangements: other Additional living arrangements comments: Lives with in [place]. 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 Gender identity (if verbalized by the patient): Female Sexual Orientation (if Verbalized by the Patient): Straight or Heterosexual
== END 2023-03-14 20:05 | disposition home or self-care (01) ==
PROVIDERS: Emergency Provider Nurse Practitioner; PCP Family Medicine Adolescent Medicine
DX: M54.31 Sciatica, right side (principal); E11.9 Type 2 diabetes mellitus without complications; I10 Essential (primary) hypertension; M81.0 Age-related osteoporosis without current pathological fracture; E78.00 Pure hypercholesterolemia, unspecified; Z79.82 Long term (current) use of aspirin; F41.9 Anxiety disorder, unspecified
CPT/HCPCS: 99213; G0463

== ENCOUNTER 2024-05-03 08:04 | Emergency (ER) | payer OTHER, SELFPAY ==
--- NOTE | 2024-05-03 08:28 | ED.URI ---
HPI - URI/Sore Throat General Chief Complaint: Upper Respiratory Infection Stated Complaint: coughing, congestion Time Seen by Provider: 05/03/24 08:21 Source: patient, RN notes reviewed and old records reviewed Mode of arrival: ambulatory Limitations: no limitations History of Present Illness HPI Narrative: patient presents to [facility] with complaints of cough, sinus pain, purulent sinus drainage, and now left eye purulent drainage. Initial symptoms began while [place] cruise ship 2 weeks ago. She has been taking multiple liba-mhk-obbmctu preparations and is getting worse instead of better. The eye irritation and drainage began last night. She is unsure of fever status. She does report that she has had some chills and sweats. She reports occasional wheezing after long episodes of coughing. She denies chest pain and shortness of breath. Related Data Home Medications Medication Instructions Recorded Confirmed aspirin 81 mg tablet,delayed 81 mg PO DAILY 01/07/22 01/19/24 release nbvnodfy-fmbu-jizo 8 mg-folic 400 1 tablet PO DAILY 01/07/22 05/03/24 mcg-K 50 mcg-lutein 300 mcg tablet (Multivitamin Women 50 Plus) Allergies Allergy/AdvReac Type Severity Reaction Status Date / Time No Known Allergies Allergy Verified 05/03/24 08:43 Review of Systems Review of Systems: All systems reviewed & are unremarkable except as noted in HPI and below Constitutional: Constitutional: Reports no additional constitutional complaints, Reports chills and Reports fatigue Eyes: Eyes: Reports as per HPI, Reports no additional eye complaints and Denies change in vision ENT: Reports system reviewed and no additional complaints, except as documented, Denies vertigo, Denies dizziness, Reports nasal congestion and Reports sore throat Cardiovascular: Cardiovascular: Reports as per HPI and Reports no additional cardiovascular complaints Respiratory: Respiratory: Reports as per HPI, Reports no additional respiratory complaints, Reports chest congestion, Reports cough, Denies dyspnea and Reports wheezing Gastrointestinal: Gastrointestinal: Reports no additional gastrointestinal complaints Neurologic: Reports headache(s) Allergic/Immunologic: Allergic/Immunologic: Reports as per HPI [facility] Past Medical History Medical History (Updated 05/03/24 @ 08:52 by Maria Guadalupe Tyler APRN) Anxiety Diabetes type 2, controlled (2016) Fracture of ankle, left, closed Fracture of left wrist History of renal stone (07/2019) Hypertension Osteopenia (~2014) Pure hypercholesterolemia, unspecified Surgical History Surgical History History of bilateral salpingo-oophorectomy History of colposcopy with cervical biopsy (11/03/03) History of hysterectomy, supracervical (~2000) History of tubal ligation (~1981) Family History Family History Mother Carcinoma of colon Cerebrovascular accident Colon polyp Hypertension Heart disease Grandparent Acute myocardial infarction Breast cancer Diabetes mellitus Heart disease Sibling Carcinoma of colon Colon polyp Grandparent Diabetes mellitus Father Malignant neoplasm of lung Social History Social History Social History: Surrogate medical decision maker: Conner Moris, spouse. Code status: Full code. Smoking status: Never smoker Second hand tobacco smoke exposure: No Alcohol intake: never Substance use: never Substance use type: does not use Lack of Transportation: No Lack of Food: Never True Current Housing: I Have Housing Concerned About Future Housing: No Difficulty Paying Gas/Electric Bills: No Difficulty Paying for Meds: No Currently Unemployed: No Education: High School Diploma/GED Difficulty w/ Childcare or Family Care: No Living arrangements: other Additional living arr
[2024-05-03 08:42] VITALS: BP 143/67; PULSE 90; RESP 18; TEMP 36.3; O2SAT 97
[2024-05-03 08:51] VITALS: BP 143/67; PULSE 90; RESP 18; TEMP 36.3; O2SAT 97
== END 2024-05-03 08:57 | disposition home or self-care (01) ==
PROVIDERS: Emergency Provider Nurse Practitioner Family; PCP Family Medicine Adolescent Medicine
DX: H10.32 Unspecified acute conjunctivitis, left eye (principal); J01.00 Acute maxillary sinusitis, unspecified; E11.9 Type 2 diabetes mellitus without complications; I10 Essential (primary) hypertension; E78.00 Pure hypercholesterolemia, unspecified; M85.80 Other specified disorders of bone density and structure, unspecified site; Z79.82 Long term (current) use of aspirin
CPT/HCPCS: 99213; G0463

== ENCOUNTER 2024-09-11 09:51 | Outpatient (CLI) | payer OTHER, SELFPAY ==
--- NOTE | ~2024-09-11 | MM_ITS ---
EXAMINATION: MM screening reid BI w justin HISTORY: Screening TECHNIQUE: Craniocaudal and mediolateral oblique 3-D tomosynthesis images were obtained and synthetic 2-D images were generated. CAD analysis was submitted and interpreted. COMPARISON: Comparison to multiple prior studies sequentially, with oldest reviewed study dated 10/16. BREAST PARENCHYMAL COMPOSITION: Not dense: There are scattered areas of fibroglandular density. FINDINGS: There is no evidence of suspicious mass, calcification, or architectural distortion to sugg est malignancy in either breast. There has been no suspicious interval change. IMPRESSION: 1. No mammographic evidence of malignancy. 2. Recommend routine screening mammography in one year. BI-RADS Category 1: Negative Reviewed, dictated and finalized at location B. [employer]
== END 2024-09-11 09:52 | disposition home or self-care (01) ==
LOC: ANHIMG 09:54
PROVIDERS: PCP Family Medicine Adolescent Medicine; Visit Provider Obstetrics & Gynecology
DX: Z12.31 Encounter for screening mammogram for malignant neoplasm of breast (principal)
CPT/HCPCS: 77063; 77067

== ENCOUNTER 2024-10-27 08:35 | Emergency (ER) | payer OTHER, SELFPAY ==
--- NOTE | 2024-10-27 08:43 | ED_ITS ---
HPI - URI/Sore Throat General Chief Complaint: Upper Respiratory Infection Stated Complaint: Chest Congestion, Cough Time Seen by Provider: 10/27/24 08:43 Source: patient, RN notes reviewed and old records reviewed Mode of arrival: ambulatory Limitations: no limitations History of Present Illness HPI Narrative: patient presents with complaints fatigue, chills, body aches. She reports symptoms have been present for 2 days. Says that she has been sleeping much more than usual, eating less than usual. Reports that she is using ice chips for hydration. She denies any nausea or abdominal pain. She does not have a thermometer, so she is unsure if she has had a fever. She has not been taking anything for her symptoms. Related Data Home Medications ?Medication ?Instructions ?Recorded ?Confirmed ?Last Taken ?Type aspirin 81 mg tablet,delayed 81 mg PO DAILY 01/07/22 06/04/24 08/28/22 History release ziqadvgs-cjac-fntk 8 mg-folic 400 1 tablet PO DAILY 01/07/22 06/04/24 08/28/22 History mcg-K 50 mcg-lutein 300 mcg tablet (Multivitamin Women 50 Plus) Allergies Allergy/AdvReac Type Severity Reaction Status Date / Time No Known Allergies Allergy Verified 10/27/24 08:41 Review of Systems Review of Systems: All systems reviewed & are unremarkable except as noted in HPI and below Constitutional: Constitutional: Reports no additional constitutional complain ts, Reports body ache(s), Reports headache(s), Reports lethargy and Reports poor appetite ENT: Reports system reviewed and no additional complaints, except as documented and Reports nasal discharge Cardiovascular: Cardiovascular: Reports no additional cardiovascular complaints Respiratory: Respiratory: Reports no additional respiratory complaints and Reports cough Gastrointestinal: Gastrointestinal: Reports no additional gastrointestinal complaints [facility] Past Medical History Medical History Anxiety Diabetes type 2, controlled (2016) Fracture of ankle, left, closed Fracture of left wrist History of renal stone (07/2019) Hypertension Osteopenia (~2014) Pure hypercholesterolemia, unspecified Surgical History Surgical History History of bilateral salpingo-oophorectomy History of tubal ligation (~1981) History of colposcopy with cervical biopsy (11/03/03) History of hysterectomy, supracervical (~2000) Family History Family History Mother Carcinoma of colon Cerebrovascular accident Colon polyp Hypertension Heart disease Grandparent Acute myocardial infarction Breast cancer Diabetes mellitus Heart disease Sibling Carcinoma of colon Colon polyp Grandparent Diabetes mellitus Father Malignant neoplasm of lung Social History Social History Social History: Surrogate medical decision maker: Conner Subramanian, spouse. Code status: Full code. Smoking status: Never smoker Second hand tobacco smoke exposure: No Alcohol intake: never Substance use: never Substance use type: does not use Lack of Transportation: No Lack of Food: Never True Current Housing: I Have Housing Concerned About Future Housing: No Difficulty Paying Gas/Electric Bills: No Difficulty Paying for Meds: No Currently Unemployed: No Education: High School Diploma/GED Difficulty w/ Childcare or Family Care: No Living arrangements: other Additional living arrangements comments: Lives with in [place]. 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 Gender identity (if verbalized by the patient): Female Sexual Orientation (if Verbalized by the Patient): Straight or Heterosexual Spiritual care concerns: No Agree to blood products: Yes Comments At the time of my signature, I reviewed and agree with the nursing past medical, surgical, social, and family history. There is no relevant family history pertinent to the patient complaint. Exam Const: General: cooperative, no acute distress, alert and awake Orientation/consciousness: oriented to person, oriented to place and oriented to time HENMT: Head: normal to inspection Ears: TM's normal bilaterally Mouth: Yes moist mucous membranes Throat: posterior oropharynx normal Resp: Effort & Inspection: normal respiratory effort and able to speak in complete sentences Auscultation: clear to auscultation bilaterally, no crackles, no rales, no rhonchi and no wheezes Cardio: Palpation: normal PMI Rate: regular rate Rhythm: regular rhythm Heart sounds: S1 normal heart sound present and S2 normal heart sound present Neuro: General: oriented to person, oriented to place and oriented to time Cranial nerves: Yes CN's II-XII intact bilaterally Psych: Appearance: grossly normal Thought process: Normal thought process present Insight: Good insight present (Psych) Judgement: Good judgement present (Psych) Course Course Level of Care: Express Care Visit Vital Signs Vital signs: Reviewed MDM - URI/Sore Throat MDM Narrative Medical decision making narrative: Positive influenza a. Supportive care measures discussed with patient. She is nontoxic appearing, stable for discharge home. Discharge instructions reviewed with patient, as well as provided in writing per nursing staff. The instructions also include specific and strict return/GO TO THE ER as well as f/u information. All questions have been answered, and the patient deny any further questions with discharge and discharge plan. Some parts of this dictation were generated by voice recognition software and may contain typographical and/or grammatical inaccuracies. Differential Diagnosis Differential diagnosis: Likely upper respiratory infection, otitis media, sinusitis, viral infection and influenza Medical Records Attestation: I reviewed the patient's medical records. Lab Data Attestation: I reviewed the patient's lab results. Discharge Plan Discharge Clinical Impression: Influenza Patient Disposition: Home, Self-Care Condition: Stable Instructions: Antibiotic Form, Influenza (ED) Patient Language: French Prescriptions: No Action tobramycin 0.3 % drops 1 drp LEFT EYE Q4H 7 Days Qty: 5 0RF aspirin 81 mg tablet,delayed release (DR/EC) 81 mg PO DAILY Multivitamin Women 50 Plus 8 mg iron-400 mcg-300 mcg tablet 1 tablet PO DAILY metoprolol succinate 50 mg tablet extended release 24 hr 50 mg PO DAILY Qty: 90 3RF rosuvastatin 40 mg tablet 20 mg PO DAILY Qty: 45 3RF Rx Instructions: 20 mg daily metformin 500 mg tablet extended release 24 hr 1,000 mg PO BID Qty: 360 3RF Rx Instructions: 1000 BID losartan 100 mg tablet See Rx Instructions .ROUTE .COMPLEX Qty: 90 2RF Dose Instruction: TAKE 1 TABLET BY MOUTH DAILY Rx Instructions: TAKE 1 TABLET BY MOUTH DAILY pioglitazone 30 mg tablet 30 mg PO DAILY Qty: 30 2RF glimepiride 2 mg tablet 2 mg PO QAM Qty: 90 2RF Rx Instructions: administer with breakfast sertraline 100 mg tablet 100 mg PO DAILY Qty: 90 2RF Follow-up/Referrals: Rehan Seymour MD [Primary Care Provider] - 2 Weeks Time of Disposition: 09:15
[2024-10-27 08:45] VITALS: BP 144/63; PULSE 73; RESP 17; TEMP 36.5; O2SAT 97
[2024-10-27 09:14] LABS: EDCOVIDSCREEN Negative (Negative); EDINFLUASCREEN Positive (Negative); EDINFLUBSCREEN Negative (Negative)
== END 2024-10-27 09:18 | disposition home or self-care (01) ==
PROVIDERS: Emergency Provider Nurse Practitioner Family; PCP Family Medicine Adolescent Medicine
DX: J10.1 Influenza due to other identified influenza virus with other respiratory manifestations (principal); E11.9 Type 2 diabetes mellitus without complications; I10 Essential (primary) hypertension; M85.80 Other specified disorders of bone density and structure, unspecified site; E78.00 Pure hypercholesterolemia, unspecified; Z79.82 Long term (current) use of aspirin
CPT/HCPCS: 87426; 87804; 99212; G0463

== ENCOUNTER 2024-11-03 12:30 | Emergency (ER) | payer OTHER, SELFPAY ==
--- NOTE | ~2024-11-03 | XR_ITS ---
EXAMINATION: XR chest 2V DATE: 11/03/2024 13:25 INDICATION: Cough and shortness of breath TECHNIQUE: PA and lateral views of the chest were obtained. COMPARISON: Chest radiograph dated 08/28/2022 FINDINGS: There is bronchial wall thickening and mild interstitial and airspace opacities in the left mid to lo wer and right lower lung zones. No pleural effusion or pneumothorax. The cardiomediastinal silhouette is normal. Mild thoracic kyphosis with mild to moderate spondylosis. IMPRESSION: 1. Opacities in the left mid to lower and right lower lung zones which could represent pneumonia or m ild pulmonary edema. Reviewed, dictated and finalized at location A. OR [employer] IMPRESSION: 1. Opacities in the left mid to lower and right lower lung zones which could re present pneumonia or mild pulmonary edema.
[2024-11-03 12:41] VITALS: BP 132/59; PULSE 91; RESP 18; TEMP 36.8; O2SAT 99
--- NOTE | 2024-11-03 13:02 | ED.URI ---
HPI - URI/Sore Throat General Chief Complaint: Upper Respiratory Infection Stated Complaint: sob and coughing Source: patient Mode of arrival: ambulatory Limitations: no limitations History of Present Illness HPI Narrative: 64 y/o female with hx DM presented for c/o not feeling better since she was seen on 10/27. Patient stated she tested negative for everything, however per the notes patient was diagnosed with influenza A at that time. Patient states I cannot function and endorses sob and weakness. Denies nausea, vomiting, diarrhea or recent fever. States she has not been checking blood sugar since she has been sick. Related Data Home Medications ?Medication ?Instructions ?Recorded ?Confirmed ?Last Taken ?Type aspirin 81 mg tablet,delayed 81 mg PO DAILY 01/07/22 06/04/24 08/28/22 History release [id number] 8 mg-folic 400 1 tablet PO DAILY 01/07/22 06/04/24 08/28/22 History mcg-K 50 mcg-lutein 300 mcg tablet (Multivitamin Women 50 Plus) Allergies Allergy/AdvReac Type Severity Reaction Status Date / Time No Known Allergies Allergy Verified 11/03/24 12:49 Review of Systems Review of Systems: CONSTITUTIONAL: Denies body aches, fever, chills, or sweats. EYES: Denies visual changes, redness, or discharge. ENT: Reports rhinorrhea, congestion, Denies sore throat, or otalgia. CARDIOVASCULAR: Denies chest pain, palpitations, or edema. RESPIRATORY: Reports cough, sob, wheezing. GASTROINTESTINAL: Denies abdominal pain, nausea, vomiting, or diarrhea. MUSCULOSKELETAL: Denies back pain, joint pain, or myalgia. NEUROLOGIC: Denies headache, numbness, tingling, or weakness. All systems reviewed & are unremarkable except as noted in HPI and below [facility] Past Medical History Medical History History of renal stone (07/2019) Fracture of ankle, left, closed Fracture of left wrist Osteopenia (~2014) Pure hypercholesterolemia, unspecified Diabetes type 2, controlled (2015) Anxiety Hypertension Surgical History Surgical History History of bilateral salpingo-oophorectomy History of tubal ligation (~1981) History of colposcopy with cervical biopsy (11/03/03) History of hysterectomy, supracervical (~2000) Family History Family History Mother Carcinoma of colon Cerebrovascular accident Colon polyp Hypertension Heart disease Grandparent Acute myocardial infarction Breast cancer Diabetes mellitus Heart disease Sibling Carcinoma of colon Colon polyp Grandparent Diabetes mellitus Father Malignant neoplasm of lung Social History Social History Social History: Surrogate medical decision maker: Conner Subramanian, spouse. Code status: Full code. Smoking status: Never smoker Second hand tobacco smoke exposure: No Alcohol intake: never Substance use: never Substance use type: does not use Lack of Transportation: No Lack of Food: Never True Current Housing: I Have Housing Concerned About Future Housing: No Difficulty Paying Gas/Electric Bills: No Difficulty Paying for Meds: No Currently Unemployed: No Education: High School Diploma/GED Difficulty w/ Childcare or Family Care: No Living arrangements: other Additional living arrangements comments: Lives with in [place]. 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 Gender identity (if verbalized by the patient): Female Sexual Orientation (if Verbalized by the Patient): Straight or Heterosexual Spiritual care concerns: No Agree to blood products: Yes Comments At time of signature, I have reviewed and agree with nursing past medical, surgical, social and family history unless otherwise noted. Please see nursing chart for further information. There is no relevant family history pertinent to the presenting complaint Exam Narrative: GENERAL: mildly ill-appearing, nontoxic in no acute distress. EYES: EOMI. No redness or drainage. Conjunctivae normal. ENT: Mucous membranes pink and moist. No rhinorrhea. NECK: Normal AROM. Supple. CHEST: No respiratory distress. Coarse and Wheezing to all esparza. 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 Speaks full sentences HEART: Regular rate and rhythm. No murmur appreciated. SKIN: Warm, dry, no rash. Capillary refill normal. Normal skin turgor. NEURO: Alert and oriented x3. Gait steady. PSYCH: Normal affect. Course Course Emergency Course: Patient is aware of diagnosis, understands and agrees to treatment plan. Anticipatory guidance given. Patient agrees to follow-up as directed and is aware of reasons to seek care at the emergency department. Portions of this record may have been created with voice recognition software Level of Care: Express Care Visit Vital Signs Vital signs: Vital Signs Temperature 98.3 F 11/03/24 12:41 Pulse Rate 91 11/03/24 12:41 Respiratory Rate 18 11/03/24 12:41 Blood Pressure 132/59 L 11/03/24 12:41 Pulse Oximetry 99 11/03/24 12:41 Oxygen Delivery Room Air 11/03/24 12:41 Temperature 98.3 F 11/03/24 12:41 Pulse Rate 91 11/03/24 12:41 Respiratory Rate 18 11/03/24 12:41 Blood Pressure 132/59 L 11/03/24 12:41 Pulse Oximetry 99 11/03/24 12:41 Oxygen Delivery Room Air 11/03/24 12:41 MDM - URI/Sore Throat MDM Narrative Medical decision making narrative: Discussed physical exam findings and CXR. O2 sat 99% RA. VSS. BS 120 Patient reassessed after Albuterol neb, lungs improved. Patient reports improvement in deep breaths. Pt appears confused at times, she is A&Ox3. Discussed at length the option to go to the ER. She declines at this time. Will send abx, steroid and inhaler now. Reviewed Rx. She is advised to contact pcp to schedule a f/u appt. Advised supportive measures and signs/symptoms to go to the ER. Pt is appropriate for outpt treatment and f/u. Differential Diagnosis Differential diagnosis: Likely upper respiratory infection, otitis media, sinusitis, viral infection, bronchitis, influenza, pharyngitis and other (Angioedema, perforation, asthma, pneumonia, PE, tension pneumothorax, cardiac tamponade HI, pericarditis, pleural effusion, CHF, bronchitis, cardiac arrhythmia) Lab Data Labs: Lab Results 11/03/24 11/03/24 Range/Units 13:14 13:30 POC Capillary Glucose 120 H (65-105) mg/dl POC Influenza A Ag Negative (Negative) POC Influenza B Ag Negative (Negative) POC SARS CoV-2 Ag Negative (Negative) Imaging Data Radiologist's impression: Patient: Betina Denney : 1960 MR#: [id number] Age: 64 Acct:[id number] Loc: [facility] ADM Date: 11/03/24Attending Dr: Ordering Physician: Mara Pimentel APRN Date of Service: 11/03/24 Procedure(s): XR chest 2V Accession Number(s): [id number] cc: Mara Pimentel APRN; Vida Shen RD, LDN~ EXAMINATION: XR chest 2V DATE: 11/03/2024 13:25 INDICATION: Cough and shortness of breath TECHNIQUE: PA and lateral views of the chest were obtained. COMPARISON: Chest radiograph dated 08/28/2022 FINDINGS: There is bronchial wall thickening and mild interstitial and airspace opacities in the left mid to lower and right lower lung zones. No pleural effusion or pneumothorax. The cardiomediastinal silhouette is normal. Mild thoracic kyphosis with mild to moderate spondylosis. IMPRESSION: 1. Opacities in the left mid to lower and right lower lung zones which could represent pneumonia or mild pulmonary edema. Discharge Plan Discharge Clinical Impression: Pneumonia Patient Disposition: Home, Self-Care Condition: Stable Instructions: Antibiotic Form, Pneumonia (ED) Additional Instructions: Pneumonia is a lung infection that can cause a fever, cough, and trouble breathing. How it spreads: When someone with bacterial pneumonia coughs, sneezes, or talks, they release respiratory droplets into the air that can be inhaled by others.?You can also get pneumonia by touching a contaminated surface or object and then touching your mouth or nose. You're generally contagious for around 48 hours after starting antibiotics and your fever goes away.? To prevent the spread of pneumonia, you can:? ? Get vaccinated? ? Wash your hands often with soap and water for 20 seconds? ? Cover your mouth with a tissue when you cough or sneeze? ? Avoid people who are already sick with pneumonia? ? Stay home when you have pneumonia Take antibiotics as directed until complete. Use albuterol inhaler for shortness of breath and wheezing. eat small frequent meals. Get lots of rest and drink fluids. Alternate Tylenol and ibuprofen for pain/fever [id number] cough medication can cause drowsiness, take according to package directions If you have nasal congestion, you can take Zyrtec, Claritin along with Flonase spray Call your Primary Care Doctor and make a follow-up appointment in 3 days. Call today to schedule appointment Go to the ER immediately for worsening symptoms or concerns Patient Language: Colombian Prescriptions: New albuterol sulfate 90 mcg/actuation HFA aerosol inhaler 2 inh inhalation QID PRN (Reason: shortness of breath or wheezing) Qty: 8.5 0RF levofloxacin 750 mg tablet 750 mg PO DAILY Qty: 7 0RF methylprednisolone [Medrol (Tereso)] 4 mg tablets,dose pack See Rx Instructions .ROUTE .COMPLEX Qty: 21 0RF Rx Instructions: orally per package directions No Action aspirin 81 mg tablet,delayed release (DR/EC) 81 mg PO DAILY Multivitamin Women 50 Plus 8 mg iron-400 mcg-300 mcg tablet 1 tablet PO DAILY metoprolol succinate 50 mg tablet extended release 24 hr 50 mg PO DAILY Qty: 90 3RF rosuvastatin 40 mg tablet 20 mg PO DAILY Qty: 45 3RF Rx Instructions: 20 mg daily metformin 500 mg tablet extended release 24 hr 1,000 mg PO BID Qty: 360 3RF Rx Instructions: 1000 BID losartan 100 mg tablet See Rx Instructions .ROUTE .COMPLEX Qty: 90 2RF Dose Instruction: TAKE 1 TABLET BY MOUTH DAILY Rx Instructions: TAKE 1 TABLET BY MOUTH DAILY pioglitazone 30 mg tablet 30 mg PO DAILY Qty: 30 2RF glimepiride 2 mg tablet 2 mg PO QAM Qty: 90 2RF Rx Instructions: administer with breakfast sertraline 100 mg tablet 100 mg PO DAILY Qty: 90 2RF Follow-up/Referrals: Vida Shen RD, LDN [Primary Care Provider] - Time of Disposition: 14:29
[2024-11-03 13:18] LABS: EDCOVIDSCREEN Negative (Negative); EDINFLUASCREEN Negative (Negative); EDINFLUBSCREEN Negative (Negative)
[2024-11-03 13:32] LABS: Glucose Point of Care 120 mg/dl (65-105)
[2024-11-03] MEDS: ALBUTEROL SULFATE NEB 2.5 MG/3 ML INH INHALATION (13:50)
== END 2024-11-03 14:34 | disposition home or self-care (01) ==
PROVIDERS: Emergency Provider Nurse Practitioner Family
DX: J18.9 Pneumonia, unspecified organism (principal); I10 Essential (primary) hypertension; E11.9 Type 2 diabetes mellitus without complications; Z20.822 Contact with and (suspected) exposure to COVID-19
CPT/HCPCS: 71046; 82948; 87426; 87804; 94640; 99213; G0463

== ENCOUNTER 2025-05-12 07:16 | Outpatient (CLI) | payer MEDICARE, SELFPAY ==
--- NOTE | ~2025-05-12 | US_ITS ---
US abdomen limited INDICATION: Fatty infiltration of the liver PROCEDURE: Realtime right upper abdominal ultrasound. COMPARISON: No prior studies for comparison. FINDINGS: The pancreas is normal without focal mass or pancreatic ductal dilation. Liver echotexture is increased consistent with fatty infiltration. There is nodularity of the liver surface, consisten t with cirrhosis. There is normal directional flow in the portal vein. The gallbladder is normal without stones, gallbladder wall thickening or pericholecystic fluid. Comm on bile duct measures 5 mm. No sonographic Dubois's sign. Right renal echotexture is unremarkable. R ight kidney measures 11.9 cm. IMPRESSION: 1: Nodular liver surface, consistent with cirrhosis. Fatty infiltration of the liver. Reviewed, dictated and finalized at location A.
== END 2025-05-12 07:17 | disposition home or self-care (01) ==
PROVIDERS: PCP Family Medicine Adolescent Medicine; Visit Provider Family Medicine
DX: K76.0 Fatty (change of) liver, not elsewhere classified (principal)
CPT/HCPCS: 76705